=== PATIENT | male | born 1955 | race Caucasian/White ===

== ENCOUNTER 2022-03-13 01:42 | Day surgery (SDC) | payer OTHER, SELFPAY ==
[2022-02-22 08:35] VITALS: BMI 33.2
[2022-03-13 07:46] VITALS: BP 133/88; PULSE 86; RESP 20; TEMP 36.1; O2SAT 86; BMI 31.1
[2022-03-13] MEDS: LACTATED RINGERS 1,000 ML 150 ML IV CONT (07:52)
[2022-03-13 07:57] LABS: Glucose Point of Care 204 mg/dl (65-105)
--- NOTE | 2022-03-13 08:23 | WPDGICN ---
Assessment and Plan Assessment and plan (1) History of colon polyps: Code(s): Z86.010 - Personal history of colonic polyps Status: Acute Assessment and Plan: Patient has a distant history of colon polyps. Plan for surveillance colonoscopy now and at intervals in the future. Given his family history of colon cancer 5 year intervals appears propria. (2) Family hx of colon cancer: Code(s): Z80.0 - Family history of malignant neoplasm of digestive organs Status: Acute Assessment and Plan: Patient's brother had intestinal cancer. Plan for patient to have surveillance colonoscopies at intervals. GI Consult Note Consult date/time: 03/13/22 08:23 Reason for consult: History of colon polyps and family history of colon cancer. HPI: Gaudencio Davies is a 66 year old male Presents for screening colonoscopy. Patient previously followed by Dr. Koo. Patient has a history of colon polyps followed several years ago. Patient reports his current weight appetite and bowel movements are normal. Patient denies abdominal pain. He has had no bleeding. Family history is significant his brother with intestinal castor felt to be colon cancer in his early 60s. Review of Systems Review of Systems: Review of systems noncontributory. [facility] Past Medical History Medical History Allergic rhinitis, unspecified Arthritis Body mass index (BMI) 23 or greater (08/17/17) Cough Dyslipidemia Encounter for screening for malignant neoplasm of prostate Erectile dysfunction Essential (primary) hypertension Gastro-esophageal reflux disease without esophagitis H/O: HTN (hypertension) Hyperlipidemia Mild depression Other fatigue Pure hypercholesterolemia Pure hypercholesterolemia, unspecified Type 2 diabetes mellitus with hyperglycemia Type 2 diabetes mellitus with hyperglycemia, without long-term current use of insulin Visual loss Surgical History Surgical History History of hernia repair History of hip replacement 2000, right History of knee surgery Family History Family History Father Malignant neoplasm of prostate, Onset Age: 64 Family history of diabetes mellitus in first degree relative Patient's father is Mother Family history of diabetes mellitus in first degree relative Patient's mother is Other Diabetes mellitus Family history of malignant neoplasm Social History Social History Smoking packs per day: 2.5 Smoking cigarettes per day: 50.0 Years smoked: 20 Smoking pack-years: 50.00 Smoking status: Former smoker Tobacco type: cigarettes Second hand tobacco smoke exposure: Yes Smoking end date: 09/17/98 Alcohol intake: never Substance use: never Substance use type: does not use Living arrangements: with family Additional living arrangements comments: lives with Additional occupation/education comments: business developer Spiritual care concerns: No Meds Home Medications and Allergies Home Medications Medication Instructions Recorded Confirmed Type sildenafil 100 mg tablet See Rx Instructions .Route 09/29/21 02/22/22 Rx .COMPLEX #9 tabs glucagon 1 mg solution for 1 mg subcut ONCE PRN hypoglycemia 11/23/21 02/22/22 Rx injection (Glucagon Emergency Kit) #2 ea rosuvastatin 40 mg tablet 40 mg PO DAILY #90 tabs 12/23/21 02/22/22 Rx lisinopril 20 mg tablet 20 mg PO DAILY #90 tabs 01/10/22 02/22/22 Rx metformin 1,000 mg tablet 1,000 mg PO BID 02/22/22 02/22/22 History multivitamin 1 tablet PO DAILY 02/22/22 02/22/22 History psyllium husk 3.4 gram/5.4 gram 1 tbsp PO DAILY 02/22/22 02/22/22 History oral powder (Metamucil) blood sugar diagnostic (Contour
--- NOTE | 2022-03-13 08:26 | WPDANESEPPF ---
Anes - Initial Pre Proc Eval Procedure: Operation Date: 03/13/22 08:30 Proposed Procedures p Screening Colonoscopy - Kike Ahuja MD Date/Time: 03/13/22 08:26 Surgeon: Kike Ahuja MD Pre Op Diagnosis: hx of colon polyps, neoplasm screening Patient Data Age: 66 Gender: M Height: 1.75 m Weight: 95.6 kg Last Vital Signs Temp 96.9 F L 03/13/22 07:46 Pulse 86 03/13/22 07:46 Resp 20 03/13/22 07:46 BP 133/88 03/13/22 07:46 Pulse Ox 86 L 03/13/22 07:46 O2 Del Method Room Air 03/13/22 07:46 Allergies Allergy/AdvReac Type Severity Reaction Status Date / Time venom-wasp Allergy Unknown Hives Verified 03/13/22 07:43 Honey Bee Allergy Unknown Hives Uncoded 03/13/22 07:43 Home Medications Medication Instructions Recorded Confirmed Type sildenafil 100 mg tablet See Rx Instructions .Route 09/29/21 02/22/22 Rx .COMPLEX #9 tabs glucagon 1 mg solution for 1 mg subcut ONCE PRN hypoglycemia 11/23/21 02/22/22 Rx injection (Glucagon Emergency Kit) #2 ea rosuvastatin 40 mg tablet 40 mg PO DAILY #90 tabs 12/23/21 02/22/22 Rx lisinopril 20 mg tablet 20 mg PO DAILY #90 tabs 01/10/22 02/22/22 Rx metformin 1,000 mg tablet 1,000 mg PO BID 02/22/22 02/22/22 History multivitamin 1 tablet PO DAILY 02/22/22 02/22/22 History psyllium husk 3.4 gram/5.4 gram 1 tbsp PO DAILY 02/22/22 02/22/22 History oral powder (Metamucil) blood sugar diagnostic (Contour #100 ea 03/01/22 03/01/22 Rx Next Test Strips) dulaglutide 4.5 mg/0.5 mL 4.5 mg (0.5 mL) subcut WEEKLY #6 mL 03/01/22 03/01/22 Rx subcutaneous pen injector (Trulicity) insulin glargine U-300 conc 300 20 unit subcut DAILY 03/01/22 03/01/22 History unit/mL (1.5 mL) subcutaneous pen (Toujeo SoloStar U-300 Insulin) lancets 30 gauge (BD Microtainer #200 ea 03/01/22 03/01/22 Rx Lancet) pen needle, diabetic 31 gauge x #100 ea 03/01/22 03/01/22 Rx 5/16 (1st Tier Unifine Pentips) Laboratory Tests 03/13/22 07:55 POC Capillary Glucose 204 mg/dl H mg/dl (65-105) Patient hx anesthesia problems: none Family hx anesthesia problems: none Results Review: All pre-operative results and documents have been reviewed as part of the pre-operative evaluation. [facility] Past Medical History Medical History Allergic rhinitis, unspecified Arthritis Body mass index (BMI) 23 or greater (08/17/17) Cough Dyslipidemia Encounter for screening for malignant neoplasm of prostate Erectile dysfunction Essential (primary) hypertension Gastro-esophageal reflux disease without esophagitis H/O: HTN (hypertension) Hyperlipidemia Mild depression Other fatigue Pure hypercholesterolemia Pure hypercholesterolemia, unspecified Type 2 diabetes mellitus with hyperglycemia Type 2 diabetes mellitus with hyperglycemia, without long-term current use of insulin Visual loss Surgical History Surgical History History of hernia repair History of hip replacement 2000, right History of knee surgery Family History Family History Father Malignant neoplasm of prostate, Onset Age: 64 Family history of diabetes mellitus in first degree relative Patient's father is Mother Family history of diabetes mellitus in first degree relative Patient's mother is Other Diabetes mellitus Family history of malignant neoplasm Social History Social History Smoking packs per day: 2.5 Smoking cigarettes per day: 50.0 Years smoked: 20 Smoking pack-years: 50.00 Smoking status: Former smoker Tobacco type: cigarettes Second hand tobacco smoke exposure: Yes Smoking end date: 09/17/98 Alcohol intake: never Substance use: never Substance use type: does n
[2022-03-13 08:59] VITALS: BP 103/80; PULSE 74; RESP 19; O2SAT 99
[2022-03-13 09:09] VITALS: BP 117/82; PULSE 76; RESP 18; O2SAT 100
== END 2022-03-13 09:22 | disposition home or self-care (01) ==
PROVIDERS: PCP Internal Medicine; Visit Provider Internal Medicine Gastroenterology
PROC: 0DJD8ZZ Inspection of Lower Intestinal Tract, Via Natural or Artificial Opening Endoscopic (ICD-10-PCS; CPT 45378; principal; 2022-03-13 08:30)
DX: Z12.11 Encounter for screening for malignant neoplasm of colon (principal); K64.8 Other hemorrhoids; K57.30 Diverticulosis of large intestine without perforation or abscess without bleeding; Z80.0 Family history of malignant neoplasm of digestive organs; Z86.010 Personal history of colon polyps; E11.9 Type 2 diabetes mellitus without complications; E78.00 Pure hypercholesterolemia, unspecified; E78.5 Hyperlipidemia, unspecified; I10 Essential (primary) hypertension; K21.9 Gastro-esophageal reflux disease without esophagitis; F32.A Depression, unspecified; Z79.84 Long term (current) use of oral hypoglycemic drugs; Z79.4 Long term (current) use of insulin; Z87.891 Personal history of nicotine dependence; E66.9 Obesity, unspecified; Z68.31 Body mass index [BMI] 31.0-31.9, adult
CPT/HCPCS: 45378; 82948; J2704; J7120